=== PATIENT | female | born 1970 | race Caucasian/White ===

== ENCOUNTER → 2018-06-29 12:04 | Outpatient (CLI) | payer BC, SELFPAY ==
--- NOTE | 2018-06-29 12:11 | XR_ITS ---
XR chest 2V HISTORY: ITS.REASON: SOBShort of breath. Dyspnea. Coughing ORDERING PHYSICIAN: Urmila Sun PATIENT AGE: 48 years Technique: PA and lateral chest. COMPARISON: August 28, 2016 CXR 2 view FINDINGS: Lungs well expanded and clear with no active disease. The cardiomediastinal silhouette and pulmonary vascularity are within normal limits. The lungs are clear without infiltrates, suspicious nodules, or pleural effusions. No acute bony abnormalities . Small rudimentary cervical ribs bilaterally noted. IMPRESSION:. Stable chest nothing definitely acute. Lungs clear.
== END ==
PROVIDERS: PCP Nurse Practitioner Family; Visit Provider Nurse Practitioner Family
DX: R06.02 Shortness of breath (principal)
CPT/HCPCS: 71046

== ENCOUNTER → 2018-10-21 09:12 | Outpatient (CLI) | payer BC, SELFPAY ==
--- NOTE | 2018-10-21 09:17 | MM_ITS ---
MM Dig screening mamm BI w/CAD CAD Screening COMPARISON: None, this is baseline INDICATION: There is no personal or family history of breast cancer TECHNIQUE: Standard CC and MLO images were obtained. R2 CAD reviewed. FINDINGS: There is a markedly and diffusely dense parenchymal pattern definitely lessening the sensitivity of mammography. The findings are bilateral and symmetrical. There are couple benign-appearing calcifications in each breast. There is no suspicious lesion and there are no suspicious microcalcifications. IMPRESSION: Dense parenchymal pattern with no suspicious lesion seen BI-RADS Category: 2 Benign Finding(s) RECOMMENDED FOLLOW-UP: 1YR - 1 YEAR FOLLOW-UP (A letter has been sent to the patient regarding results of the study.)
== END ==
PROVIDERS: PCP Family Medicine; Visit Provider Nurse Practitioner Family
DX: Z12.31 Encounter for screening mammogram for malignant neoplasm of breast (principal)
CPT/HCPCS: 77067

== ENCOUNTER → 2020-10-24 13:56 | Outpatient (CLI) | payer BC, SELFPAY ==
--- NOTE | 2020-10-24 14:02 | XR_ITS ---
PROCEDURE: XR COCCYX 2V CLINICAL INDICATION: TRAUMATIC COCCYDYNIA COMPARISON: No exams were available for comparison FINDINGS: Faint cortical regularity involves the sacrococcygeal junction consistent with a nondisplaced fracture. No other significant anomalies are evident. IMPRESSION: Nondisplaced fracture sacrococcygeal junction Dictated by: Tariq Rubin MD 10/24/2020 16:24 Tariq Rubin MD in [place] 10/24/2020 16:24
== END ==
PROVIDERS: PCP Family Medicine; Visit Provider Family Medicine
DX: M53.3 Sacrococcygeal disorders, not elsewhere classified (principal)
CPT/HCPCS: 72220

== ENCOUNTER → 2021-10-12 10:12 | Outpatient (CLI) | payer BC, SELFPAY ==
--- NOTE | 2021-10-12 10:26 | CT_ITS ---
FINAL REPORT CLINICAL HISTORY: R/O STROKE LEFT ARM NUMBNESS SINCE THIS MORNING FINDINGS: Axial images of the head were obtained without contrast. Coronal reformatted images were also obtained.This study was performed with techniques to keep radiation doses as low as reasonably achievable (ALARA). Individualized dose reduction techniques using automated exposure control or adjustment of mA and/or kV according to the patient's size were employed. There is no evidence of intracranial hemorrhage or mass. The ventricular size is within normal limits. There is no evidence of shift of the midline structures. No abnormal extra axial fluid collection is identified. No skull abnormality is seen on the bone window images. IMPRESSION: No acute intracranial abnormality. Reviewed, Interpreted and Dictated by Edison Claire III, MD Transcribed by Ree Tijerina Authenticated by Edison Claire III, MD on 10/12/2021 10:51:57 AM [facility]
== END ==
PROVIDERS: PCP Family Medicine; Visit Provider Family Medicine
DX: M79.601 Pain in right arm (principal); R20.2 Paresthesia of skin
CPT/HCPCS: 70450

== ENCOUNTER → 2021-10-15 16:14 | Outpatient (CLI) | payer BC, SELFPAY ==
--- NOTE | 2021-10-15 16:16 | XR_ITS ---
PROCEDURE INFORMATION: Exam: XR Lumbosacral Spine Exam date and time: 10/15/2021 4:16 PM Age: 51 years old Clinical indication: Low back pain and sciatica; Left; Patient HX: Low back pain with lt sciatica. PT fell on tail bone 1 yr ago; Additional info: Other chronic pain, low back pain, unspecified TECHNIQUE: Imaging protocol: XR of the lumbosacral spine. Views: 4 or 5 views. COMPARISON: CR XR COCCYX 2V 10/24/2020 2:04 PM FINDINGS: Bones/joints: Mild loss of intervertebral disc space with degenerative changes at space L3 through S1. Soft tissues: Surgical clips overlie the gallbladder fossa. IMPRESSION: No acute findings.
== END ==
PROVIDERS: PCP Family Medicine; Visit Provider Internal Medicine Adolescent Medicine
DX: M54.50 Low back pain, unspecified (principal); G89.29 Other chronic pain
CPT/HCPCS: 72110

== ENCOUNTER → 2021-10-24 07:58 | Outpatient (CLI) | payer BC, SELFPAY ==
--- NOTE | 2021-10-24 08:00 | MR_ITS ---
FINAL REPORT CLINICAL HISTORY: NEUROGENIC CLAUDICATION, LUMBAR RADICULOPATHY, LOW BACK PAIN, LEFT LEG NUMBNESS X6 WEEKS. FINDINGS: Multiplanar MR imaging of the lumbar spine was performed without contrast. On the sagittal T2-weighted images, disc degeneration is seen at multiple levels. The vertebral alignment is normal. There is no evidence of fracture. The conus has an unremarkable appearance. L1-2: There is no significant canal stenosis or neural foraminal narrowing L2-3: An annular bulge is present. There is no significant canal stenosis or neural foraminal narrowing. L3-4: An annular bulge is present. There is no significant canal stenosis or neural foraminal narrowing. L4-5: An annular bulge is present. There is no significant canal stenosis or neural foraminal narrowing. L5-S1: There is no significant canal stenosis or neural foraminal narrowing. IMPRESSION: Degenerative disc disease as above. Reviewed, Interpreted and Dictated by Edison Claire III, MD Transcribed by Ree Tijerina Authenticated by Edison Claire III, MD on 10/24/2021 10:40:35 AM [facility][1]
== END ==
PROVIDERS: PCP Family Medicine; Visit Provider Family Medicine
DX: M54.16 Radiculopathy, lumbar region (principal); G95.19 Other vascular myelopathies
CPT/HCPCS: 72148; 76376

== ENCOUNTER 2021-12-24 09:30 | Outpatient (RCR) | payer BC, SELFPAY | END 2021-12-24 09:35 | disposition home or self-care (01) | LOC: PT 09:30 | PROVIDERS: PCP Family Medicine; Visit Provider Psychiatry & Neurology Neurology | DX: M54.14 Radiculopathy, thoracic region (principal); M54.16 Radiculopathy, lumbar region | CPT/HCPCS: 97010; 97012; 97014; 97035; 97110; 97163; G0283 ==